=== PATIENT | male | born 1980 | race Caucasian/White ===

== ENCOUNTER 2025-02-05 06:42 | Outpatient (OUT) | payer OTHER, SELFPAY ==
--- OUTSIDE RECORDS SUMMARY | 2025-02-03 04:15 | XMS_ITS ---
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 Yes How often did you have a drink containing alcohol in the past year?Never (0 point)How many drinks did you have on a typical day when you were drinking in the past year?1 or 2 drinks (0 point)How often did you have six or more drinks on one occasion in the past year?Less than monthly (1 point)Points1 InterpretationNegative Problems Problem Type SNOMED Code ICD Code Onset Dates Problem Status W/U Status Risk Notes Problem Well adult (386946798) Well adult (Z00.00 ) Activeconfirmed Vital Signs Weight 266.0 lbs 02/03/2025 Height 6ft in 02/03/2025 Blood pressure systolic 124 mm Hg 02/04/20 25 Blood pressure diastolic 84 mm Hg 025 BMI 36.07 kg/m2 02/03/2025 Encounters Encounter Location Date Provider Diagnosis [facility] [address] [place] [address] 02/03/2025 Aaron Antonio Well adult Z00.0 0 Assessments Encounter Date Diagnosis (ICD Code) Assessment Notes Treatment Notes Treatment Clinical Notes Section Notes 02/03/2025 Well adult (ICD-10 - Z00.00) Plan Of Treatment Pending Test Test Name Order Date HEMOGLOBIN A1C (GLYCO) 02/03/2025 LIPID PANEL (CHOL/TRIG/HDL/LDL) 02/04/20 25 INSULIN 02/03/2025 THYROID PANEL (T4/TSH/FREE T3) 5 PSA, SCREENING 02/03/2025 CMP (COMP MET ROQUE) w/eGFR CKD-EPI 2024 CBC WITH DIFF 02/03/2025 Progress Notes * Que CALLAHANOB:1980 (45 yo M)Acc No.[id number]:02/03/2025 New Patient Patient: Jc HALL :?Chidi Antonio ([facility]), MDDOB:1980???Age: 45 Y???Sex:MaleDate:02/03/2025Phone:[phone]:[id number] [place], [place] [id number] In:09:20 AM ESTCheck Out:09:48 AM EST Subjective: * Chief Complaints: * N p- no meds-est * HPI: ???General:? N issues int hpas Fx Arm. * ROS: ???EENT:?hearing changes?denies, denies.?visual changes?denies, denies.?non-healing mouth sores?denies, denies.?swollen glands or neck lumps denies, denies.?hoarseness?denies, denies.?sore throat?denies, denies.?difficulty swallowing?denies, denies.?nose bleeds?denies, denies.?nasal congestion?denies, denies.?ear ache?denies, denies.?ear discharge?denies, denies. ringing in ears?denies, denies.?light sensitivity?denies, denies.?eye pain denies, denies.?blurring?denies, denies.?eye irritation?denies, denies.?double vision?denies, denies.?vision loss?denies, denies.?General/Constitutional:?Sweats:?Denies, Denies.?Fatigue?denies, denies. Sleep problems?denies, denies.?Anorexia?denies, denies.?Malaise?denies, denies.?Weight loss?denies, denies.?Fatigue or Weakness?denies, denies.?Fever or Chills?denies, denies.?Cardiovascular:?Shortness of Breath w/lying flat?denies, denies.?Light headedness/dizziness?denies, denies.?Chest tightness/ heavy pressure?denies, denies. Swelling of legs, ankles, or feet?denies, denies.?Waking up with shortness of breath denies, denies.?Chest pain?denies, denies.?Palpitations?denies, denies. Weight gain?denies, denies.?Respiratory:?Chronic or frequent cough?denies, denies.?Coughing upblood?denies, denies.?Difficulty breathing?denies, denies.?Productive cough denies, denies.?Snoring?denies, denies.?Shortness of breath that awakens from sleep (PND)?denies, denies.?Chest pain?denies, denies.?Sputum production?denies, denies.?Wheezing?denies, denies.?Musculoskeletal:?Joint pain?denies, denies.?Joint Fluid?denies, denies.?Back pain?denies, denies.?Knee pain?denies, denies.?Neck pain?denies, denies.?Joint Stiffness?denies, denies.?Muscle cramps?denies, denies. Weakness of muscles?denies, denies.?Arthritis?denies, denies.?Muscle aches denies, denies.?Pain in shoulder(s)?denies, denies.?Swollen joints?denies, denies.? * Active Problem List Z00.00 Well adult Modified On:02/03/2025W/U Status:confirmed * Medical History: * Surgical History: R ight Arm Surgery * Hospitalization/Major Diagno stic Procedure: D enies Past Hospitalization * Family History: F ather: alive. M other: alive. S ister(s): alive. 1 brother(s) , 1 sister(s) - healthy. . * Social History: ???Tobacco Use:?Tobacco Control (Standard)?Tobacco use:?Nonsmoker ???Drug/Alcohol:?AUDIT-C (Standard)?Did you have a drink containing alcohol in the past year??Yes ?How often did you have a drink containing alcohol in the past year?? Never (0 point) ?How many drinks did you have on a typical daywhen you were drinking in the past year??1 or 2 drinks (0 point) ?How often did you have six or more drinks on one occasion in the past year??Less than monthly (1 point) ?Points?1 ?Interpretation?Negative * Medications: N one * Allergies: N .K.D.A.no[Allergies Verified] Objective: * Vitals: W t:266.0lbs, Ht: 6ft, BP:124/84mm Hg, BMI:36.07Index, Ht-cm: 182.88 cm, Wt-k.66 kg. * Examination: ???Physical Exam: ?GENERAL:?well developed, well nourished, in no acute distress , well developed, well nourished, in no acute distress.?HEAD:?normocephalic/atraumatic , normocephalic/atraumatic. ?EYES:?pupils equal, round and reactive to light, conjunctivae and sclerae normal , pupils equal, round and reactive to light, conjunctivae and sclerae normal. ?EARS:?no deformity or lesion of external ear, canals and TM appear normal bilaterally, TM's intact, not inflamed with normal light reflex, hearing grossly normal to conversational speech , no deformity or lesion of external ear, canals and TM appear normal bilaterally, TM's intact, not inflamed with normal light reflex, hearing grossly normal to conversational speech.?NOSE:?no deformity, discharge, inflammation, or lesions , no deformity, discharge, inflammation, or lesions.?MOUTH:?mucous membranes moist, normal oropharynx and posterior pharynx without lesions or exudates, tongue normal, dentition normal , mucous membranes moist, normal oropharynx and posterior pharynx without lesions or exudates, tongue normal, dentition normal.?NECK:?neck supple, no masses or palpable cervical nodes, trachea midline, thyroid without nodules, masses, tenderness, or enlargement , neck supple, no massesor palpable cervical nodes, trachea midline, thyroid without nodules, masses, tenderness, or enlargement.?CHEST:?no chest wall deformity, no chest wall tenderness ,no chest wall deformity, no chest wall tenderness.?LUNGS:?normal respiratory effort and clear to auscultation, no wheezes, rales, or rhonchi, good air exchange , normal respiratory effort and clear to auscultation, no wheezes, rales, or rhonchi, good air exchange.?CARDIO:?regular rate and rhythm, normal S1 and S2, nor murmur, rub, or gallop , regular rate and rhythm, normal S1 and S2, nor murmur, rub, or gallop.?PULSES:?normal capillary refill , normal capillary refill. ?ABDOMEN:?soft, non-distended, non-tender, no masses , soft, non-distended, non-tender, no masses.?MUSCULOSKELETAL:?no deformity or scoliosis noted, normal range of motion, joints normal, no erythema, edema, effusion, or ecchymosis , no deformity or scoliosis noted, normal range of motion, joints normal, no erythema, edema, effusion, or ecchymosis.?EXTREMITY:?no clubbing, cyanosis, edema, or deformity withnormal ROM in both upper and lower bilateral extremities , no clubbing, cyanosis, edema, or deformity with normal ROM in both upper and lower bilateral extremities.?NEUROLOGIC:?grossly normal , grossly normal.?SKIN:?no rashes, ulcerations, or suspicious lesions , no rashes, ulcerations, or suspicious lesions.?LYMPH NODES:?no cervical adenopathy, nodes normal , no cervical adenopathy, nodes normal.?MENTAL STATUS:?alert and oriented x3, normal mood and affect , alert and oriented x3, normal mood and affect.? Assessment: * Assessment: 1.?Well adult - Z00.00 (Primary)??? Plan: * Treatment: ?LAB: HEMOGLOBIN A1C (GLYCO) ?LAB: LIPID PANEL (CHOL/TRIG/HDL/LDL) ?LAB: INSULIN ?LAB: THYROID PANEL (T4/TSH/FREE T3) ?LAB: PSA, SCREENING ?LAB: CMP (COMP MET ROQUE) w/eGFR CKD-EPI ?LAB: CBC WITH DIFF * Procedure Codes: * Preventive Medicine: ??Screenings/Counseling:?BMI ACTION PLAN?Above Normal BMI Follow-up?Dietary management education, guidance, and counseling * * Sign off status: CompletedVisit Status:?CHK (Check Out) true * Provider: Per Antonio ([facility])MD Date: 04/05/2024 Generated for Printing/Faxing/eTransmitting on:?02/05/2025 06:44 AM EST History and Physical Notes * HPI (History of Present Illness) CategorySub-CategoryDetailNotesCategory NotesGeneral N issues int hpas Fx Arm Examination CategorySub-CategoryDetailNotesCategory NotesPhysical ExamGENERAL:well developed, well nourished, in no acute distress , well developed, well nourished, in no acute distressHEAD:normocephalic/atraumatic , normocephalic/atraumaticEYES:pupils equal, round and reactive to light, conjunctivae and sclerae normal , pupils equal, round and reactive to light, conjunctivae and sclerae normalEARS:no deformity or lesion of external ear, canals and TM appear normal bilaterally, TM's intact, not inflamed with normal light reflex, hearing grossly normal to conversational speech , no deformity or lesion of external ear, canals and TM appear normal bilaterally, TM's intact, not inflamed with normal light reflex, hearing grossly normal to conversational speechNOSE:no deformity, discharge, inflammation, or lesions , no deformity, discharge, inflammation, or lesionsMOUTH:mucous membranes moist, normal oropharynx and posterior pharynx without lesions or exudates, tonguenormal, dentition normal , mucous membranes moist, normal oropharynx and posterior pharynx without lesions or exudates, tongue normal, dentition normalNECK:neck supple, no masses or palpable cervical nodes, trachea midline, thyroid without nodules, masses, tenderness, or enlargement , neck supple, no masses or palpable cervical nodes, trachea midline, thyroid without nodules, masses, tenderness, or enlargementCHEST:no chest wall deformity, no chest wall tenderness , no chest wall deformity, no chest wall tendernessLUNGS:normal respiratory effort and clear to auscultation, no wheezes, rales, or rhonchi, good air exchange , normal respiratory effort and clear to auscultation, no wheezes, rales, or rhonchi, good air exchangeCARDIO:regular rate and rhythm, normal S1 and S2, nor murmur, rub, or gallop , regular rate and rhythm, normal S1 and S2, nor murmur, rub, or gallopPULSES:normal capillary refill , normal capillary refillABDOMEN:soft, non- distended, non-tender, no masses , soft, non-distended, non-tender, no masses RECTAL:MUSCULOSKELETAL:no deformity or scoliosis noted, normal range of motion, joints normal, no erythema, edema, effusion, or ecchymosis , no deformity or scoliosis noted, normal range of motion, joints normal, no erythema, edema, effusion, or ecchymosisEXTREMITY:no clubbing, cyanosis, edema, or deformity with normal ROM in both upper and lower bilateral extremities , no clubbing, cyanosis, edema, or deformity with normal ROM in both upper and lower bilateral extremitiesNEUROLOGIC:grossly normal , grossly normalSKIN:no rashes, ulcerations, or suspicious lesions , no rashes, ulcerations, or suspicious lesionsLYMPH NODES:no cervical adenopathy, nodes normal , no cervical adenopathy, nodes normalMENTAL STATUS:alert and oriented x3, normal mood and affect , alert and oriented x3, normal mood and affect
--- OUTSIDE RECORDS SUMMARY | 2025-02-03 10:04 | XMS_ITS | Clinical Summary ---
Author Organization [facility] Address [address] [place] [address], [address] [place] [address] Care Team Providers Care Protozoology Teacher Name Role Phone Unavailable Primary Care Provider Unavailabl e Social History Tobacco UseTypesPacks/DayYears UsedDateSmoking Tobacco: Never AssessedSex and Gender InformationValueDate RecordedSex Assigned at BirthNot on fileLegal Sex Male05/05/2012 1:20 PM ESTGender IdentityNot on fileSexual OrientationNot on file Plan of Treatment Not on file
--- OUTSIDE RECORDS SUMMARY | 2025-02-03 10:04 | XMS_ITS | Clinical Summary ---
Author Organization [facility] Address [address] [place] [address] Care Team Providers Care Product Strategy Director Name Role Phone Unavailable Primary Care Provider Unavailabl e Social History Tobacco UseTypesPacks/DayYears UsedDateSmoking Tobacco: Never AssessedSex and Gender InformationValueDate RecordedSex Assigned at BirthNot on fileLegal Sex Male06/07/2022 6:56 PM EDTGender IdentityNot on fileSexual OrientationNot on file Plan of Treatment Not on file
--- OUTSIDE RECORDS SUMMARY | 2025-02-05 06:45 | XMS_ITS | Patient Health Record ---
Author Organization [facility] in [place] Address [address] [place] [address] Care Team Providers Care Slitter Creaser Slotter Operator Name Role Phone Paco Aaron Primary Care Provider [phone] Allergies No Known Allergies Reason For Referral No Information Social History Tobacco Use: Social History Observation [...] W/U Status Risk Notes Problem Well adult (692314672) Well adult (Z00.00 ) Activeconfirmed Vital Signs Blood pressure diastolic 84 mm Hg 02/03/2025 Zuvdqx1rm in02/03/2025lood pressure iubupwkb891 mm Hg02/03/20257824Frsukc330.0 lbs 02/03/2025BMI36.07 kg/m202/03/2025 Encounters Encounter Location Date Provider Diagnosis [facility] [address] [facility] [place] [address] 02/03/2025 Aaron Antonio Well adult Z00.0 0 [...] w/eGFR CKD-EPI 2024 CBC WITH DIFF 02/03/2025 Insurance Providers Payer Name Payer Address Payer Phone Subscriber Number Group Number Insured Name Patient Relationship to Insured Coverage Start Date Coverage End Date [employer] [address] [address] [place] [address] [id number] [facility] patient is the spouse of the insured Medical (General) History Surgical History Surgery Date(Month/Year) Right Arm Surgery
--- OUTSIDE RECORDS SUMMARY | 2025-02-05 06:45 | XMS_ITS | Clinical Summary ---
Author Organization [facility] Address [address] [place] [address] Care Team Providers Care Retrieval Specialist Name Role Phone Unavailable Primary Care Provider Unavailabl e Social History Tobacco UseTypesPacks/DayYears UsedDateSmoking Tobacco: Never AssessedSex and Gender InformationValueDate RecordedSex Assigned at BirthNot on fileLegal Sex Male06/07/2022 6:56 PM EDTGender IdentityNot on fileSexual OrientationNot on file Plan of Treatment Not on file
--- OUTSIDE RECORDS SUMMARY | 2025-02-05 06:45 | XMS_ITS | Clinical Summary ---
Author Organization [facility] Address [address] [place] [address], [address] [place] [address] Care Team Providers Care Gate Tender Name Role Phone Unavailable Primary Care Provider Unavailabl e Social History Tobacco UseTypesPacks/DayYears UsedDateSmoking Tobacco: Never AssessedSex and Gender InformationValueDate RecordedSex Assigned at BirthNot on fileLegal Sex Male05/05/2012 1:20 PM ESTGender IdentityNot on fileSexual OrientationNot on file Plan of Treatment Not on file
[2025-02-05 07:06] LABS: Hematocrit 45.0 % (42.0-54.0); Hemoglobin 15.8 g/dL (14.0-18.0); Immature Granulocytes Abs Auto 0.02 10^3/uL (0.00-0.03); Immature Granulocytes Pct Auto 0.2 % (0.0-0.5); Lymphocytes Absolute Auto 2.3 10^3/uL (1.2-3.8); Mean Corpuscular HGB Conc 35.1 g/dL (29.9-35.2); Mean Corpuscular Hemoglobin 30.0 pg (25.9-34.0); Mean Corpuscular Volume 85.6 fL (80.0-94.0); Platelet Count 268 10^3/uL (150-450); Red Blood Count 5.26 10^6/uL (4.70-6.10); White Blood Count 8.5 10^3/uL (4.0-11.0)
[2025-02-05 09:34] LABS: Alanine Aminotransferase 61 U/L (16-63); Albumin Globulin Ratio 1.0; Albumin Level 3.6 g/dL (3.4-5.0); Alkaline Phosphatase 97 U/L (46-116); Anion Gap 10.0; Aspartate Amino Transferase 23 U/L (15-37); Blood Urea Nitrogen 13.0 mg/dL (7.0-18.0); Calcium 9.3 mg/dL (8.5-10.1); Carbon Dioxide 28.0 mmol/L (21.0-32.0); Chloride 104 mmol/L (98-107); Cholesterol 175 mg/dL (<=200); Estimated GFR (African America >60 (>=60 mL/min/1.73m^2); Estimated GFR (Non-African Ame >60 (>=60 mL/min/1.73m^2); Free T3 2.70 pg/mL (2.18-3.98); Globulin 3.6 g/dL; Glucose 116 mg/dL (74-106); HDL Cholesterol 44 mg/dL (40-60); Potassium 4.0 mmol/L (3.5-5.1); Sodium 138 mmol/L (136-145); Thyroid Stimulating Hormone 3.210 uIU/mL (0.358-3.740); Total Protein 7.2 g/dL (6.4-8.2); Triglycerides 70 mg/dL (<=150); VLDL CHOLESTEROL 14.0 mg/dL
== END 2025-02-05 06:43 | disposition home or self-care (01) ==
LOC: LAB 06:42
PROVIDERS: PCP Family Medicine; Visit Provider Family Medicine
DX: Z00.00 Encounter for general adult medical examination without abnormal findings (principal); Z12.5 Encounter for screening for malignant neoplasm of prostate
CPT/HCPCS: 36415; 80053; 80061; 83036; 83525; 84436; 84443; 84481; 85025; G0103